=== PATIENT | female | born 2000 | race African-American/Black ===

== ENCOUNTER 2019-06-16 01:20 | Emergency (ER) | payer OTHER, SELFPAY ==
[2019-06-16 01:31] VITALS: BP 159/104; PULSE 119; RESP 15; TEMP 37.2; O2SAT 98; BMI 20.9
--- NOTE | 2019-06-16 01:32 | ED_ITS ---
HPI - Nausea/Vomiting/Diarrhea General Chief complaint: Nausea/Vomiting/Diarrhea Stated complaint: throwing up all day Time Seen by Provider: 06/16/19 01:28 Source: patient Mode of arrival: Ambulatory Limitations: no limitations History of Present Illness HPI Narrative: The patient has been vomiting throughout the course today, into the night. She has upper abdominal discomfort, increased when she is vomiting. She has also had diarrhea. She has no hematemesis or blood per rectum. She had alcohol last night, but she does not take excessive amount. She has no chronic GI symptoms, she has no history of PUD. She is on no chronic medications. She has no URI symptoms, cough, or fever chills. She has no dy suria. She just started her menstrual cycle, she from his there is no way she is . She has no chronic illnesses. She is around no one with similar symptoms. Related Data Previous Rx's Medication Instructions Recorded ondansetron 4 mg PO Q4H #10 tab 06/16/19 Allergies Allergy/AdvReac Type Severity Reaction Status Date / Time No Known Drug Allergies Allergy Verified 06/16/19 01:31 Review of Systems Constitutional Constitutional: Denies chills, Denies fever(s), Denies headache(s), Denies lethargy and Denies weakness Eyes Eyes: Denies change in vision ENT Ears, Nose, Mouth, and Throat: Denies dizziness, Reports dry mouth, Denies headache(s), Denies mouth pain and Denies nasal congestion Cardiovascular Cardiovascular: Denies chest pain, Denies irregular heart rhythm, Denies palpitations, Denies dyspnea and Denies orthopnea Respiratory Respiratory: Denies cough, Denies dyspnea and Denies wheezing Gastrointestinal Gastrointestinal: Reports abdominal pain, Reports diarrhea, Reports nausea and Reports vomiting Genitourinary Genitourinary: Denies dysuria, Denies flank pain, Denies urinary hesitancy and Denies urinary urgency Musculoskeletal Musculoskeletal: Denies back pain and Denies muscle weakness Integumentary/Breasts Skin/Breast: Denies pruritus, Denies erythema, Denies rash and Denies wounds Neurologic Neurologic: Denies confusion, Denies dizziness, Denies headache(s) and Denies weakness Psychiatric Psychiatric: Denies anxiety, Denies confusion and Denies depression Endocrine Endocrine: Denies palpitations Allergic/Immunologic Allergic/Immunologic: Denies wheezing Patient History Social History Smoking Status: Never smoker Exam Initial Vital Signs Initial Vital Signs: Vital Signs Temperature 98.9 F 06/16/19 01:31 Pulse Rate 119 H 06/16/19 01:31 Respiratory Rate 15 06/16/19 01:31 Blood Pressure 159/104 H 06/16/19 01:31 Pulse Oximetry 98 06/16/19 01:31 Const General: cooperative, well developed, well groomed and No ill appearing Nutritional Appearance: well nourished [facility] Head: normocephalic and atraumatic Mouth: other (Dry oral mucosa) Throat: posterior oropharynx normal Eyes General: appearance normal, both eyes and all related structures Eyelids: eyelids normal Conjunctivae: conjunctivae normal Sclera: sclerae normal Pupils: PERRL EOM: EOM intact bilaterally Neck Neck: No lymphadenopathy, No tender and No JVD Resp Effort & Inspection: normal respiratory effort and able to speak in complete sentences Auscultation: clear to auscultation bilaterally, no rales, no rhonchi and no wheezes Cardio Rate: regular rate Rhythm: regular rhythm Heart Sounds: S1 normal, S2 normal, no click, no gallops, no murmurs and no rubs Pulses: normal peripheral pulses GI Inspection: non-distended Palpation: soft, no hepatosplenomegaly, No guarding, No pulsatile mass and tender (Mild epigastric) Auscultation: normal bowel sounds Back/Spine/Pelvis Back: No CVA tenderness Skin General: no rashes or lesions noted, No jaundice and No petechiae Neuro General: alert, oriented x3, gait normal and no focal motor deficits Speech: speech normal Extrem General: full ROM, no pedal edema and no calf tenderness Course Course Course Narrative: The patient is being given 2 L of IV fluids. She received Zofran for nausea vomiting. She is now up and moving about, feeling much better. She is drinking fluids without nausea vomiting. Labs are reassuring. She is discharged home with Zofran for nausea control. Orders Ordered: ED Orders 06/16/19 01:59 Complete Blood Count AUTO DIFF Stat Comprehensive Metabolic Panel Stat Lipase Stat Discontinued Medications Sodium Chloride (Normal Saline 0.9%) 1,000 mls @ 1,000 mls/hr IV BOLUS ONE Stop: 06/16/19 02:43 Last Infusion: 06/16/19 03:10 Dose: 0 mls/hr Documented by: Infusion: 06/16/19 02:02 Dose: 1,000 mls/hr Documented by: Infusion: 06/16/19 01:51 Dose: 0 mls/hr Documented by: Admin: 06/16/19 01:51 Dose: 1,000 mls/hr Documented by: HAILE Sodium Chloride (Normal Saline 0.9%) 1,000 mls @ 1,000 mls/hr IV BOLUS ONE Stop: 06/16/19 04:02 Last Infusion: 06/16/19 04:46 Dose: 0 mls/hr Documented by: Admin: 06/16/19 03:14 Dose: 1,000 mls/hr Documented by: HAILE Sodium Chloride (Normal Saline 0.9%) 1,000 mls @ 1,000 mls/hr IV BOLUS ONE Stop: 06/16/19 04:36 Last Admin: 06/16/19 04:46 Dose: Not Given Documented by: HAILE Ondansetron HCl (Zofran) 4 mg IV NOW ONE Stop: 06/16/19 01:45 Last Admin: 06/16/19 01:51 Dose: 4 mg Documented by: HAILE Ondansetron HCl (Zofran Odt Prepack) 1 bottle MISC SEEINSTR ONE Stop: 06/16/19 04:39 Last Admin: 06/16/19 04:47 Dose: 1 bottle Documented by: HAILE Vital Signs Vital signs: Vital Signs - 8 hr 06/16/19 01:31 06/16/19 04:44 Temperature 98.9 F Pulse Rate 119 H 90 Respiratory Rate 15 17 Blood Pressure 159/104 H Blood Pressure [Right Arm] 126/70 Pulse Oximetry 98 99 MDM - Nausea/Vomiting/Diarrhea Lab Data Result diagrams: 06/16/19 01:59 06/16/19 01:59 Labs: Lab Results 06/16/19 06/16/19 Range/Units 01:59 01:59 WBC 6.9 (4.5-11.0) X10^3/uL RBC 4.26 (4.0-5.2) X10^6/uL Hgb 12.8 (12.0-16.0) g/dL Hct 38.9 (36-46) % MCV 91.2 (80-100) fL MCH 30.1 (26-34) PG MCHC 33.0 (30-36) % RDW 13.5 (11.6-14.8) % Plt Count 325 (150-400) X10^3/uL Neut % (Auto) 73.5 (50-75) % Lymph % (Auto) 21.0 L (25-40) % Dent % (Auto) 4.7 (3-14) % Eos % (Auto) 0.2 L (2-4) % Baso % (Auto) 0.6 (0-2) % Neut # (Auto) 5100 (0112-7533) /uL Lymph # (Auto) 1500 (7401-1318) /uL Dent # (Auto) 300 (0-900) /uL Eos # (Auto) 0 (0-450) /uL Baso # (Auto) 0 (0-100) /uL Sodium 142 (137-145) mmol/L Potassium 3.6 (3.4-5.1) mmol/L Chloride 104 (98-107) mmol/L Carbon Dioxide 24 (22-32) mmol/L BUN 14 (7-17) mg/dL Creatinine 0.65 (0.52-1.04) mg/dL Estimated GFR > 60.0 (>60) mL/min BUN/Creatinine Ratio 21.5 (6-22) Glucose 96 (70-100) mg/dL Calcium 10.2 (8.4-10.2) mg/dL Total Bilirubin 2.1 H (0.2-1.3) mg/dL AST 25 (14-36) IU/L ALT 16 (<35) IU/L Alkaline Phosphatase 58 (38-126) U/L Total Protein 9.1 H (6.3-8.2) g/dL Albumin 5.4 H (3.5-5.0) g/dL Globulin 3.7 (1.7-4.1) g/dL Albumin/Globulin Ratio 1.5 (1.0-2.8) Lipase 145 (23-300) U/L Point of Care Testing Test Results Negative Urine Dip Bedside Urine Glucose Negative Bedside Urine Bilirubin - Negative Bedside Urine Ketone +++ 80 Urine Specific [place] 1.030 Bedside Urine Occult Blood - Negative Bedside Urine pH 6.0 Bedside Urine Protein +/- 15 Bedside Urine Urobilinogen - Negative Bedside Urine Nitrite - Negative Bedside Urine Leukocytes - Negative Esterase Discharge Plan Departure Patient Disposition: Home Clinical Impression: Nausea vomiting and diarrhea Discharge Date/Time: 06/16/19 04:53 Instructions: DI for Vomiting -- Adult Activity Restrictions/Additional Instructions: Zofran every 4 hours as needed for nausea control. Drink plenty of water. He should initially consume a bland diet, advancing diet as tolerated. Return the ER if symptoms escalate. Prescriptions: New ondansetron 4 mg tablet,disintegrating 4 mg PO Q4H Qty: 10 RF: 0
[2019-06-16] MEDS: SODIUM CHLORIDE 0.9% 1,000 ML 1000 ML IV ×2 (01:51→03:14)
[2019-06-16] MEDS: ONDANSETRON 4 MG/2 ML INJ IV (01:51)
[2019-06-16 02:13] LABS: Add Manual Diff / Slide Review NO; Basophils Absolute Auto 0 /uL (0-100); Basophils Percent Auto 0.6 % (0-2); Eosinophils Absolute Auto 0 /uL (0-450); Eosinophils Percent Auto 0.2 % (2-4); Hematocrit 38.9 % (36-46); Hemoglobin 12.8 g/dL (12.0-16.0); Lymphocytes Absolute Auto 1500 /uL (1100-4500); Mean Corpuscular Hemoglobin 30.1 PG (26-34); Mean Corpuscular Volume 91.2 fL (80-100); Monocytes Absolute Auto 300 /uL (0-900); Monocytes Percent Auto 4.7 % (3-14); Neutrophils Absolute Auto 5100 /uL (1500-7000); Neutrophils Percent Auto 73.5 % (50-75); Platelet Count 325 X10^3/uL (150-400); Red Blood Cell Count 4.26 X10^6/uL (4.0-5.2); Red Cell Distribution Width 13.5 % (11.6-14.8); White Blood Cell Count 6.9 X10^3/uL (4.5-11.0)
[2019-06-16 02:16] LABS: Alanine Aminotransferase 16 IU/L (<35); Albumin 5.4 g/dL (3.5-5.0); Albumin Globulin Ratio 1.5 (1.0-2.8); Alkaline Phosphatase 58 U/L (38-126); Aspartate Aminotransferase 25 IU/L (14-36); BUN Creatinine Ratio 21.5 (6-22); Bilirubin Total 2.1 mg/dL (0.2-1.3); Blood Urea Nitrogen 14 mg/dL (7-17); Calcium 10.2 mg/dL (8.4-10.2); Carbon Dioxide 24 mmol/L (22-32); Chloride 104 mmol/L (98-107); Estimated Glomerular Filt Rate > 60.0 mL/min (>60); Globulin 3.7 g/dL (1.7-4.1); Glucose 96 mg/dL (70-100); HEMOLYSIS < 15 (0-50); Lipase 145 U/L (23-300); Potassium 3.6 mmol/L (3.4-5.1); Sodium 142 mmol/L (137-145); Total Protein 9.1 g/dL (6.3-8.2)
[2019-06-16 04:44] VITALS: BP 126/70; PULSE 90; RESP 17; O2SAT 99
[2019-06-16] MEDS: ONDANSETRON 4 MG ODT PREPACK 1 BOTTLE MISC (04:47)
== END 2019-06-16 04:53 | disposition home or self-care (01) ==
PROVIDERS: Emergency Provider Emergency Medicine
DX: R11.2 Nausea with vomiting, unspecified (principal); R19.7 Diarrhea, unspecified; R10.10 Upper abdominal pain, unspecified
CPT/HCPCS: 36415; 80053; 81003; 81025; 83690; 85025; 96361; 96374; 99284; J2405